=== PATIENT | female | born 1995 | race Hispanic/Latino ===

== ENCOUNTER 2022-06-17 07:23 | Inpatient (IN) | payer OTHER ==
[2022-06-17 08:26] VITALS: BMI 35.2
[2022-06-17] MEDS ORDERED: hydrALAZINE 20 MG/ML VIAL SLOW IVP PRN (09:02)
[2022-06-17] MEDS ORDERED: NS w/ Oxytocin 30 units 500 ML IV SCH ×2 (13:30)
[2022-06-17] MEDS ORDERED: Promethazine HCl 25 MG/ML VIAL IM PRN ×2 (13:30→16:33)
[2022-06-17] MEDS ORDERED: Ondansetron PF 4 MG/2 ML Vial IVP PRN ×2 (13:30→16:33)
[2022-06-17] MEDS ORDERED: Butorphanol Tartrate 1 MG/ML VIAL SLOW IVP PRN (13:30)
[2022-06-17] MEDS ORDERED: Tranexamic Acid 1,000 MG in Sodium Chloride 0.9% 250 ML 250 ML IVPB PRN (13:30)
[2022-06-17] MEDS ORDERED: Acetaminophen 500 MG TAB PO PRN (13:30)
[2022-06-17] MEDS ORDERED: Misoprostol 200 MCG TAB PR PRN (13:30)
[2022-06-17] MEDS ORDERED: Lidocaine 1% (PF) 30 ML VIAL SC PRN (13:30)
[2022-06-17] MEDS ORDERED: Carboprost 250 MCG/ML AMP IM PRN (13:30)
[2022-06-17] MEDS ORDERED: Methylergonovine 0.2 MG/ML VIAL IM PRN (13:30)
[2022-06-17] MEDS ORDERED: Tranexamic Acid 1,000 MG/10 ML VIAL IVP PRN (13:36)
[2022-06-17] MEDS: Lactated Ringer's 1,000 ML IV SCH ×2 (14:26→16:14)
[2022-06-17] MEDS ORDERED: Lidocaine 2% PF 5 ML VIAL ONE (14:54)
[2022-06-17] MEDS ORDERED: Bupivacaine PF 0.5% 30 ML VIAL ONE (14:56)
[2022-06-17] MEDS ORDERED: Bupivacaine 0.25% HCL 30 ML VIAL ONE (14:56)
[2022-06-17 15:12] LABS: HBSAg Index 0.17 S/CO (0-0.99); Hep B Surf Ag Non-Reactive S/CO (NonReactive)
[2022-06-17 15:56] LABS: Hemoglobin 9.7 g/dL (12.0-15.5); Mean Corpuscular Hemoglobin 21.7 pg (27.0-33.0); Mean Corpuscular Volume 72.3 fl (81.6-98.3); Mean Platelet Volume 9.8 fl (7.4-10.4); Platelet Count 336 10x3/uL (150-450); RBC Distribution Width 16.6 % (11.5-14.5); Red Blood Cell (RBC) Count 4.47 10x6/uL (3.90-5.03)
[2022-06-17] MEDS ORDERED: Fentanyl 2 mcg/Bup 0.1% Cadd 100 ML ONE (16:01)
[2022-06-17 16:19] LABS: Syphilis Antibody Nonreactive (Nonreactive); Syphilis Antibody Index 0.05 S/CO (<1.00 Non-Reactive)
[2022-06-17 16:24] LABS: SARS-CoV-2 NAA Rapid Test Not Detected (NotDetected)
[2022-06-17] MEDS ORDERED: Naloxone HCl 0.4 mg/ml Vial IVP PRN ×2 (16:33)
[2022-06-17] MEDS ORDERED: Lactated Ringer's 500 ML IV PRN (16:33)
[2022-06-17] MEDS ORDERED: Acetaminophen 325 MG TAB PO PRN (16:33)
[2022-06-17] MEDS ORDERED: diphenhydrAMINE 50 MG/ML VIAL IVP PRN (16:33)
[2022-06-17] MEDS ORDERED: ePHEDrine Sulfate 50 MG/10 ML VIAL SLOW IVP PRN (16:33)
[2022-06-17] MEDS ORDERED: Moisturizing Cream (Eucerin) 113 GM JAR TOP PRN (16:33)
[2022-06-17] MEDS ORDERED: Communication Order-Pharmacy FS SCH (16:45)
[2022-06-18] MEDS: Fentanyl 2 mcg/Bupivacaine 0.1% Cassette 100 ML EPIDURAL SCH ×2 (00:18→07:04)
[2022-06-18] MEDS ORDERED: Mineral Oil ENEMA ONE (09:26)
[2022-06-18] MEDS ORDERED: CEFAZOLIN 2 GM VIAL ONE (10:05)
[2022-06-18] MEDS ORDERED: Azithromycin 500 MG VIAL ONE ×2 (10:05→10:11)
[2022-06-18] MEDS ORDERED: Morphine PF 10 MG/10 ML VIAL ONE (10:21)
[2022-06-18] MEDS ORDERED: Methylergonovine 0.2 MG/ML VIAL ONE (10:36)
[2022-06-18] MEDS ORDERED: Tranexamic Acid 1,000 MG/10 ML VIAL ONE (10:37)
[2022-06-18] MEDS ORDERED: Carboprost 250 MCG/ML AMP ONE (10:39)
[2022-06-18] MEDS ORDERED: Fentanyl 100 MCG/2 ML VIAL ONE ×2 (10:40→12:21)
[2022-06-18] MEDS ORDERED: Midazolam HCl 2 mg/2 ml Vial ONE (10:40)
[2022-06-18] MEDS ORDERED: Naloxone HCl 0.4 mg/ml Vial IV PRN (10:42)
[2022-06-18] MEDS ORDERED: diphenhydrAMINE 50 MG/ML VIAL IVP PRN (10:42)
[2022-06-18] MEDS ORDERED: Fentanyl 100 MCG/2 ML VIAL SLOW IVP PRN (10:42)
[2022-06-18] MEDS ORDERED: Meperidine HCl/PF 25 MG/ML VIAL SLOW IVP PRN (10:42)
[2022-06-18] MEDS ORDERED: Promethazine HCl 25 MG/ML VIAL IM PRN (10:42)
[2022-06-18] MEDS ORDERED: Promethazine HCl 25 MG SUPP PR PRN (10:42)
[2022-06-18] MEDS ORDERED: Moisturizing Cream (Eucerin) 113 GM JAR TOP PRN (10:42)
[2022-06-18] MEDS ORDERED: Ondansetron PF 4 MG/2 ML Vial IVP PRN (10:42)
[2022-06-18] MEDS ORDERED: Naloxone HCl 0.4 mg/ml Vial IVP PRN ×2 (10:42)
[2022-06-18] MEDS ORDERED: Ondansetron HCl/PF 4 MG/2 ML Vial IVP PRN (10:42)
[2022-06-18] MEDS ORDERED: Ondansetron PF 4 MG/2 ML Vial ONE (10:43)
[2022-06-18] MEDS ORDERED: Communication Order-Pharmacy FS SCH (10:45)
[2022-06-18] MEDS ORDERED: Ketorolac Tromethamine 30 MG/ML VIAL IVP SCH (10:45)
[2022-06-18] MEDS ORDERED: HYDROcodone/Acetaminophen 5/325 mg Tablet PO PRN ×3 (11:23→22:45)
[2022-06-18] MEDS: Ketorolac Tromethamine 30 MG/ML VIAL IVP PRN ×2 (11:35→17:44)
[2022-06-18] MEDS ORDERED: Boostrix 0.5 ML (Tdap) VIAL (>/=7 yrs of age) IM ONE (13:46)
[2022-06-18] MEDS ORDERED: hydrALAZINE 20 MG/ML VIAL SLOW IVP PRN (13:46)
[2022-06-18] MEDS ORDERED: Acetaminophen 325 MG TAB PO SCH (13:46)
[2022-06-18] MEDS: Lactated Ringer's 1,000 ML IV SCH ×3 (13:51→21:30)
[2022-06-18] MEDS ORDERED: Acetaminophen 325 MG TAB PO PRN (13:51)
[2022-06-18] MEDS: Simethicone Chewable 80 MG TAB PO SCH ×2 (15:30→23:13)
[2022-06-18] MEDS ORDERED: Ferrous Sulfate 325 MG TAB PO SCH (21:00)
[2022-06-18] MEDS: Docusate 100 MG CAP PO SCH (23:13)
[2022-06-18] MEDS: HYDROcodone/Acetaminophen 5/325 mg Tablet PO PRN (23:13)
[2022-06-19 03:53] LABS: Hemoglobin 7.1 g/dL (12.0-15.5); Mean Corpuscular HGB CONC 30.6 g/dL (32.0-36.0); Mean Corpuscular Hemoglobin 21.6 pg (27.0-33.0); Mean Corpuscular Volume 70.7 fl (81.6-98.3); Mean Platelet Volume 9.8 fl (7.4-10.4); Platelet Count 240 10x3/uL (150-450); RBC Distribution Width 16.6 % (11.5-14.5); Red Blood Cell (RBC) Count 3.28 10x6/uL (3.90-5.03); White Blood Cell (WBC) Count 17.2 10x3/uL (3.5-10.5)
[2022-06-19] MEDS: Simethicone Chewable 80 MG TAB PO SCH ×4 (05:40→19:54)
[2022-06-19] MEDS: Ketorolac Tromethamine 30 MG/ML VIAL IVP PRN (05:41)
[2022-06-19] MEDS: HYDROcodone/Acetaminophen 5/325 mg Tablet PO PRN ×4 (05:41→18:41)
[2022-06-19] MEDS: Lactated Ringer's 1,000 ML IV SCH ×3 (06:00→19:55)
[2022-06-19] MEDS: Docusate 100 MG CAP PO SCH ×2 (09:03→21:33)
[2022-06-19] MEDS: Ferrous Sulfate 325 MG TAB PO SCH (09:03)
[2022-06-19] MEDS: Prenatal Vitamin 1 TAB PO SCH (09:03)
[2022-06-19] MEDS: Simethicone Chewable 80 MG TAB PO PRN (21:33)
[2022-06-19] MEDS: Ibuprofen 800 MG TAB PO SCH (21:33)
[2022-06-20] MEDS: Ibuprofen 800 MG TAB PO SCH ×2 (05:36→13:43)
[2022-06-20] MEDS: Simethicone Chewable 80 MG TAB PO PRN (05:37)
[2022-06-20] MEDS: Lactated Ringer's 1,000 ML IV SCH ×2 (07:01→07:42)
[2022-06-20] MEDS: Ferrous Sulfate 325 MG TAB PO SCH (07:49)
[2022-06-20] MEDS: Prenatal Vitamin 1 TAB PO SCH (07:49)
[2022-06-20] MEDS: Docusate 100 MG CAP PO SCH (07:49)
[2022-06-20 07:50] VITALS: BP 111/55; TEMP 97.9
[2022-06-20] MEDS ORDERED: Acetaminophen 325 MG TAB PO SCH (08:15)
[2022-06-20] MEDS ORDERED: Polyethylene Glycol 3350 17 GM Packet PO SCH (09:00)
== END 2022-06-20 14:40 | disposition home or self-care (01) | DRG 787 ==
LOC: CSHLD/OP 07:23 → CSHLD 15:53 → CSHPP 06-18 14:15
PROVIDERS: ADMIT Obstetrics & Gynecology; ATTEND Obstetrics & Gynecology
PROC: 10907ZC Drainage of Amniotic Fluid, Therapeutic from Products of Conception, Via Natural or Artificial Opening (ICD-10-PCS; 2022-06-17)
PROC: 10D00Z1 Extraction of Products of Conception, Low, Open Approach (ICD-10-PCS; principal; 2022-06-18)
DX: O24.420 Gestational diabetes mellitus in childbirth, diet controlled (principal); D62 Acute posthemorrhagic anemia; Z20.822 Contact with and (suspected) exposure to COVID-19; Z80.3 Family history of malignant neoplasm of breast; Z3A.40 40 weeks gestation of pregnancy; Z37.0 Single live birth; Z87.440 Personal history of urinary (tract) infections; O66.5 Attempted application of vacuum extractor and forceps; O77.0 Labor and delivery complicated by meconium in amniotic fluid; F41.9 Anxiety disorder, unspecified; O99.344 Other mental disorders complicating childbirth; O63.1 Prolonged second stage (of labor); O32.8XX0 Maternal care for other malpresentation of fetus, not applicable or unspecified; O90.81 Anemia of the puerperium; D72.829 Elevated white blood cell count, unspecified; O99.893 Other specified diseases and conditions complicating puerperium; D50.9 Iron deficiency anemia, unspecified
CPT/HCPCS: 36415; 36416; 51702; 85027; 86780; 86850; 86900; 86901; 87340; 99285; J1885; J2001; J2210; J2250; J2274; J2405; J2590; J3010; J3490; J7120; S0020; U0002